=== PATIENT | male | born 1955 | race Caucasian/White ===

== ENCOUNTER 2023-07-15 09:45 | Outpatient (CLI) | payer MEDICARE, SELFPAY | END 2023-07-15 09:46 | disposition home or self-care (01) | PROVIDERS: Visit Provider Internal Medicine | DX: C79.51 Secondary malignant neoplasm of bone (principal) | CPT/HCPCS: 72197; A9575 ==

== ENCOUNTER 2024-07-18 09:01 | Outpatient (CLI) | payer MEDICARE, SELFPAY ==
[2024-07-18 11:20] LABS: PSA Diagnostic* 2.42 ng/mL (0.10-4.00)
== END 2024-07-18 09:02 | disposition home or self-care (01) ==
PROVIDERS: Visit Provider Radiology Diagnostic Radiology
DX: C61 Malignant neoplasm of prostate (principal)
CPT/HCPCS: 36415; 84153